=== PATIENT | male | born 2000 | race Two or more races ===

== ENCOUNTER 2023-10-22 10:03 | Emergency (ER) | payer OTHER ==
[~2023-10-22] VITALS: Ht 182.9 cm; Wt 107.7 kg
[2023-10-22 10:28] VITALS: BP 125/63; PULSE 61; RESP 18; O2SAT 97
== END 2023-10-22 13:52 | disposition left against medical advice (07) ==
LOC: ER 10:03
DX: S60.561A Insect bite (nonvenomous) of right hand, initial encounter (principal); Z53.21 Procedure and treatment not carried out due to patient leaving prior to being seen by health care provider; W57.XXXA Bitten or stung by nonvenomous insect and other nonvenomous arthropods, initial encounter; Y93.9 Activity, unspecified; Y92.89 Other specified places as the place of occurrence of the external cause; Y99.8 Other external cause status